=== PATIENT | male | born 1975 | race African-American/Black ===

== ENCOUNTER 2025-03-19 18:47 | Emergency (ER) | payer MEDICAID, OTHER ==
[~2025-03-19] VITALS: Ht 190.5 cm; Wt 80.5 kg
[2025-03-19 20:03] LABS: BASO # 0.0 10^3/uL (0.0-0.2); BASO % 0.8 % (0.0-1.0); EOS # 0.3 10^3/uL (0.0-0.5); EOS % 5.6 % (0.0-3.0); LYMPH # 2.2 10^3/uL (1.5-5.0); LYMPH % 44.3 % (24.0-44.0); MONO # 0.4 10^3/uL (0.0-0.8); MONO % 8.2 % (2.0-8.0); NEUTROPHILS # 2.0 10^3/uL (1.5-8.5); NEUTROPHILS % 40.9 % (36.0-66.0); PLATELET COUNT, AUTOMATED 443 10^3/uL (150-450)
[2025-03-19 20:33] LABS: ALT/SGPT 17.0 U/L (7.0-40); AST/SGOT 18.0 U/L (<34); CALCIUM LEVEL 9.7 MG/DL (8.5-10.1); CARBON DIOXIDE LEVEL 30.0 MMOL/L (20-31); CHLORIDE LEVEL 104.0 MMOL/L (98-107); CREATININE FOR GFR 1.19 MG/DL (0.70-1.30); GLOMERULAR FILTRATION RATE 74.9 (>60); POTASSIUM SERUM 4.7 MMOL/L (3.5-5.1); SODIUM LEVEL 140.0 MMOL/L (136-145)
[2025-03-20] MEDS ORDERED: ISOVUE-370 76% 100 ML VIAL As Ordered ONE (00:30)
[2025-03-20] MEDS: PANTOPRAZOLE 40MG VIAL IV ONE (01:20)
[2025-03-20] MEDS: SUCRALFATE 1 GM TAB PO ONE (01:20)
[2025-03-20] MEDS: KETOROLAC 30 MG/ML 1 ML VIAL IV ONE (01:20)
[2025-03-20] MEDS: NS 500 ML IV ONE (01:20)
[2025-03-20 02:21] VITALS: O2SAT 81
[2025-03-20 04:00] VITALS: BP 146/90
[2025-03-20] MEDS ORDERED: PEPC1TAB5 PO (04:07)
[2025-03-20] MEDS ORDERED: MIRA3350 PO (04:07)
[2025-03-20 04:25] VITALS: TEMP 96.9
== END 2025-03-20 04:31 | disposition home or self-care (01) ==
LOC: M ED 18:47 → EDBD 18:47 → M ED 03-20 04:31
DX: R10.84 Generalized abdominal pain (principal); K59.00 Constipation, unspecified; K21.9 Gastro-esophageal reflux disease without esophagitis; F17.200 Nicotine dependence, unspecified, uncomplicated; Z79.899 Other long term (current) drug therapy
CPT/HCPCS: 74177; 80048; 80076; 83690; 85025; 96361; 96374; 99284; J1885; J2470; Q9967

== ENCOUNTER 2025-03-24 16:09 | Emergency (ER) | payer MEDICAID, OTHER ==
[~2025-03-24] VITALS: Ht 190.5 cm; Wt 83.8 kg
[~2025-03-24 16:09] MED LIST: MIRA3350 PO; PEPC1TAB5 PO
[2025-03-24] MEDS ORDERED: ONDA-282 PO (18:05)
[2025-03-24 18:11] LABS: KETONE, URINE AUTO RFX NEGATIVE (NEGATIVE); LEUKOCYTE ESTERASE UR AUTO RFX NEGATIVE (NEGATIVE); MUCUS, URINE RFX SMALL (NEGATIVE); NITRITE, URINE AUTO RFX NEGATIVE (NEGATIVE); RBC, URINE AUTO RFX 0 /HPF (0-3); SQUAM EPITHELIAL CELL UR AURFX 0 /HPF (0-6); WBC, URINE AUTO RFX 0 /HPF (0-3)
[2025-03-24 18:14] VITALS: BP 133/97; TEMP 97; O2SAT 100
== END 2025-03-24 18:20 | disposition home or self-care (01) ==
LOC: EDBD 16:09 → M ED 17:35
DX: R11.10 Vomiting, unspecified (principal); R10.9 Unspecified abdominal pain; F17.200 Nicotine dependence, unspecified, uncomplicated; Z79.83 Long term (current) use of bisphosphonates; Z79.899 Other long term (current) drug therapy